=== PATIENT | female | born 1990 | race Two or more races ===

== ENCOUNTER 2020-08-07 19:26 | Emergency (ER) | payer OTHER ==
[~2020-08-07] VITALS: Ht 154.9 cm; Wt 57.2 kg
== END 2020-08-07 22:04 | disposition home or self-care (01) ==
LOC: ER 19:26
DX: N93.8 Other specified abnormal uterine and vaginal bleeding (principal)

== ENCOUNTER 2020-08-14 19:36 | Emergency (ER) | payer OTHER ==
[~2020-08-14] VITALS: Ht 154.9 cm; Wt 57.2 kg
== END 2020-08-14 21:59 | disposition home or self-care (01) ==
LOC: ER 19:36
DX: N93.8 Other specified abnormal uterine and vaginal bleeding (principal)